=== PATIENT | male | born 1950 | race Caucasian/White ===

== ENCOUNTER 2018-12-20 15:57 | Outpatient (RCR) | payer MEDICARE, OTHER, SELFPAY | END 2018-12-25 23:59 | LOC: DC 15:57 | PROVIDERS: Family Provider Family Medicine; PCP Family Medicine; Visit Provider Family Medicine | DX: E11.9 Type 2 diabetes mellitus without complications (principal); Z71.3 Dietary counseling and surveillance | CPT/HCPCS: G0108 ==

== ENCOUNTER 2019-01-09 08:54 | Outpatient (RCR) | payer MEDICARE, OTHER, SELFPAY | END 2019-01-25 23:59 | LOC: DC 08:54 | PROVIDERS: Family Provider Family Medicine; PCP Family Medicine; Visit Provider Family Medicine | DX: E11.9 Type 2 diabetes mellitus without complications (principal); Z71.3 Dietary counseling and surveillance | CPT/HCPCS: 97802 ==

== ENCOUNTER 2019-02-05 08:30 | Outpatient (RCR) | payer MEDICARE, OTHER, SELFPAY | END 2019-02-24 23:59 | LOC: DC 08:30 | PROVIDERS: Family Provider Family Medicine; PCP Family Medicine; Visit Provider Family Medicine | DX: E11.9 Type 2 diabetes mellitus without complications (principal); Z71.3 Dietary counseling and surveillance | CPT/HCPCS: 97803; G0108 ==

== ENCOUNTER 2019-03-07 13:41 | Outpatient (RCR) | payer MEDICARE, OTHER, SELFPAY | END 2019-03-27 23:59 | LOC: DC 13:41 | PROVIDERS: Family Provider Family Medicine; PCP Family Medicine; Visit Provider Family Medicine | DX: E11.9 Type 2 diabetes mellitus without complications (principal); Z71.3 Dietary counseling and surveillance | CPT/HCPCS: G0109 ==

== ENCOUNTER 2019-03-28 14:52 | Outpatient (RCR) | payer MEDICARE, OTHER, SELFPAY | END 2019-04-27 23:59 | LOC: DC 14:52 | PROVIDERS: Family Provider Family Medicine; PCP Family Medicine; Visit Provider Family Medicine | DX: Z71.3 Dietary counseling and surveillance (principal); E11.9 Type 2 diabetes mellitus without complications | CPT/HCPCS: G0109 ==

== ENCOUNTER 2019-05-14 08:30 | Outpatient (RCR) | payer MEDICARE, OTHER, SELFPAY | END 2019-05-27 23:59 | LOC: DC 08:30 | PROVIDERS: Family Provider Family Medicine; PCP Family Medicine; Visit Provider Family Medicine | DX: Z71.3 Dietary counseling and surveillance (principal); E11.9 Type 2 diabetes mellitus without complications | CPT/HCPCS: 97803 ==

== ENCOUNTER 2019-05-30 15:55 | Outpatient (RCR) | payer MEDICARE, OTHER, SELFPAY | END 2019-05-30 23:59 | disposition home or self-care (01) | LOC: DC 15:55 | PROVIDERS: Family Provider Family Medicine; PCP Family Medicine; Visit Provider Family Medicine | DX: Z71.3 Dietary counseling and surveillance (principal); E11.9 Type 2 diabetes mellitus without complications | CPT/HCPCS: G0109 ==

== ENCOUNTER 2021-12-22 08:30 | Outpatient (RCR) | payer MEDICARE, OTHER, SELFPAY | END 2021-12-25 23:59 | LOC: DC 08:30 | PROVIDERS: PCP Family Medicine; Referring Provider Family Medicine; Visit Provider Family Medicine | DX: E11.9 Type 2 diabetes mellitus without complications (principal) | CPT/HCPCS: 97802; G0108 ==

== ENCOUNTER 2022-01-19 09:33 | Outpatient (RCR) | payer MEDICARE, OTHER, SELFPAY | END 2022-01-25 23:59 | LOC: DC 09:33 | PROVIDERS: PCP Family Medicine; Referring Provider Family Medicine; Visit Provider Family Medicine | DX: E11.9 Type 2 diabetes mellitus without complications (principal) | CPT/HCPCS: G0108 ==

== ENCOUNTER 2022-02-02 08:56 | Outpatient (RCR) | payer MEDICARE, OTHER, SELFPAY | END 2022-02-24 23:59 | LOC: DC 08:56 | PROVIDERS: PCP Family Medicine; Referring Provider Family Medicine; Visit Provider Family Medicine | DX: E11.9 Type 2 diabetes mellitus without complications (principal) | CPT/HCPCS: 97803 ==